=== PATIENT | male | born 1970 | race Caucasian/White ===

== ENCOUNTER 2020-11-14 06:16 | Emergency (ER) | payer SELFPAY ==
[2020-11-14] MEDS ORDERED: Lidocaine 1% 30 ML SDV INJECT ONE (06:32)
--- NOTE | 2020-11-14 06:39 | EDM.PDOC ---
<Rafy Hernandez - Last Filed: 11/14/20 08:38> ED HPI GENERAL MEDICAL PROBLEM - General Chief Complaint: Upper Extremity Injury/Pain Stated Complaint: PT FELL DOWN STAIRS INJURY TO FACE RIGHT HAND Time Seen by Provider: 11/14/20 06:34 - Related Data Allergies Allergy/AdvReac Type Severity Reaction Status Date / Time No Known Allergies Allergy Verified 11/14/20 06:37 ED TRAUMA EXTREMITY PROCEDURES - Laceration/Wound Repair Proximal Nose Lac/Wound Length In cm: 2 Appearance: Subcutaneous Anesthetic Type: Local Local Anesthesia - Lidocaine (Xylocaine): 1% Plain Local Anesthetic Volume: 4cc Skin Prep: Saline Exploration/Debridement/Repair: Wound Explored Closed With: Sutures Suture Size: 4-0 # of Sutures: 6 Suture Type: Interrupted Sterile Dressing Applied: Nurse Tetanus Status Addressed: Yes Complications: No - Splinting Right Upper Extremity Splint Site: R forearm Pre-Procedure NV Status: Normal Post-Procedure NV Status: Normal Splint Material: Plaster Splint Design: Volar Applied & Form Fitted By: Provider Provider Post-Splint Application NV Check: NV Status Normal, Good Position Complications: No Progress/Comments: Pt tolerated well no complications. Course - Re-Assessments/Exams Free Text/Narrative Re-Assessment/Exam: 11/14/20 07:33 Assumed care from Renate Cheema PA-c Departure - Departure Time of Disposition: 08:40 Disposition: Home, Self-Care 01 Condition: Fair Clinical Impression: Fall (on) (from) other stairs and steps, initial encounter, Laceration Closed fracture of radius Qualifiers: Encounter type: initial encounter Radius location: head Fracture alignment: nondisplaced Laterality: right Qualified Code(s): S52.124A - Nondisplaced fracture of head of right radius, initial encounter for closed fracture Nasal bone fracture Qualifiers: Encounter type: initial encounter Fracture type: open Qualified Code(s): S02.2XXB - Fracture of nasal bones, initial encounter for open fracture - Discharge Information *PRESCRIPTION DRUG MONITORING PROGRAM REVIEWED*: Not Applicable *COPY OF PRESCRIPTION DRUG MONITORING REPORT IN PATIENT ALICIA: Not Applicable Instructions: Nasal Fracture, Radial Head Fracture, [id number] Referrals: PCP,None [Primary Care Provider] - Forms: ED Department Discharge Additional Instructions: RX: Keflex Use Tylenol or Motrin for pain. Keep splint dry when showering. If your fingers become numb or cold or change colors you can loosen the splint slightly like we discussed. Upon leaving the ER contact an orthopedic surgeon in your home town to schedule an appointment to have your wrist evaluated. If any new symptoms or concerns develop contact your primary care facility or return to the ER. <Angel Luis Nazario - Last Filed: 11/14/20 08:55> Course - Radiology Interpretation Free Text/Narrative:: [facility] Final Radiology Report Call: [phone] assistance Online chat: [email or web address] Name: NIRMALA CEDEÑO Age: 50Years M Date: 11/14/2020 SSN: -- : [id number] Study: CR WRIST COMP MIN 3V RT Requesting Physician: MARIA TERESA REINA Images: 3 Addl Studies: Provided Clinical History: fall, pain deformity Contrast: Contrast Medium: Contrast Amount: Contrast Method: CONFIDENTIALITY STATEMENT This report is intended only for use by the referring physician, and only in accordance with law. If you received this in error, call [phone]. Page 1 of 1 PROCEDURE INFORMATION: Exam: XR Right Wrist Exam date and time: 11/14/2020 6:47 AM Age: 50 years old Clinical indication: Injury or trauma; Fall; Blunt trauma (contusions or hematomas); Wrist; Right; Additional info: Fall, pain deformity TECHNIQUE: Imaging protocol: XR Right wrist. Views: 3 or more views. COMPARISON: No relevant prior studies available. FINDINGS: Bones/joints: Acute destructed comminuted intra-articular distal radial fracture. Suggestion of chip fracture along dorsal aspect the triquetrum. Soft tissues: Soft tissue swelling over the dorsum wrist IMPRESSION: Acute destructed comminuted intra-articular distal radial fracture. Suggestion of chip fracture along dorsal aspect the triquetrum. Thank you for allowing us to participate in the care of your patient. Dictated and Authenticated by: Jabari Waddell MD 11/14/2020 7:07 AM Central Time ([place] & [place]) [facility] Final Radiology Report Call: [phone] assistance Online chat: [email or web address] Name: NIRMALA CEDEÑO Age: 50Years M Date: 11/14/2020 SSN: -- : [id number] Study: CR NASAL BONE MIN 3V Requesting Physician: MARIA TERESA REINA Images: 3 Addl Studies: Provided Clinical History: fall, sweling, laceration Contrast: Contrast Medium: Contrast Amount: Contrast Method: CONFIDENTIALITY STATEMENT This report is intended only for use by the referring physician, and only in accordance with law. If you received this in error, call [phone]. Page 1 of 1 PROCEDURE INFORMATION: Exam: XR Nasal Bones Exam date and time: 11/14/2020 6:42 AM Age: 50 years old Clinical indication: Injury or trauma; Fall; Blunt trauma (contusions or hematomas); Nose; Injury date: 11/14/2020; Additional info: Fall, sweling, laceration TECHNIQUE: Imaging protocol: XR of the nasal bones. Views: Minimum of 3 views COMPARISON: No relevant prior studies available. FINDINGS: Sinuses: Well aerated. No opacification. Bones/joints: Nasal laceration with appearance of a nondisplaced fracture. Soft tissues: See above. IMPRESSION: Nasal laceration with appearance of a nondisplaced fracture. Thank you for allowing us to participate in the care of your patient. Dictated and Authenticated by: Jabari Waddell MD 11/14/2020 7:12 AM Central Time ([place] & [place]) <Maria Teresa Reina Adolfo - Last Filed: 11/15/20 01:20> ED HPI GENERAL MEDICAL PROBLEM - General Source of Information: Reports: Patient History Limitations: Reports: No Limitations - History of Present Illness INITIAL COMMENTS - FREE TEXT/NARRATIVE: ED ambulatory with c/o pain right wrist, cut to nose. States in new environment sleeping in loft, slight disorientation on awakening, in dark got up turned and fell down stairs, no loss of consciousness, denies neck or back pain. Baby aspirin daily. No weakness, cut to nasal bridge, abrasion left temporal and bilateral knees. Review of Systems - Review of Systems Review Of Systems: Comprehensive ROS is negative, except as noted in HPI. ED EXAM, GENERAL - Physical Exam Exam: See Below Exam Limited By: No Limitations General Appearance: Alert, Mild Distress Eye Exam: Bilateral Eye: EOMI, PERRL Ears: Normal External Exam, Hearing Grossly Normal, Normal TMs Nose: Nasal Swelling, Other (laceraton nasal bridge) Throat/Mouth: Normal Inspection, Normal Voice Neck: Non-Tender, Full Range of Motion. No: Limited Range of Motion Respiratory/Chest: No Respiratory Distress, Lungs Clear, Normal Breath Sounds Cardiovascular: Normal Peripheral Pulses, Regular Rate, Rhythm GI/Abdominal: Normal Bowel Sounds, Soft, Non-Tender Extremities: Redness, Other Neurological: Alert, Normal Cognition, Normal Gait, No Motor/Sensory Deficits Psychiatric: Normal Affect, Normal Mood Skin Exam: Warm, Wound/Incision (left forehead abrasion, bilateral superficial abasions to knees, laceration across nasal bridge, scant bleeding) Course - Vital Signs Last Recorded V/S: Last Vital Signs Temp 97.7 F 11/14/20 07:47 Pulse 72 11/14/20 07:47 Resp 14 11/14/20 07:47 BP 98/63 11/14/20 07:47 Pulse Ox 98 11/14/20 07:47 - Orders/Labs/Meds Orders: Active Orders 24 hr Category Date Time Status DME for Discharge [COMM] Routine Oth 11/14/20 07:35 Ordered Meds: Medications Discontinued Medications Generic Name Dose Route Start Last Admin Trade Name Lilly PRN Reason Stop Dose Admin Bacitracin 1 dose 11/14/20 08:36 11/14/20 08:46 Bacitracin Oint 1 Gm U/D Packet TOP 11/14/20 08:37 1 dose ONETIME ONE Administration Cephalexin 500 mg 11/14/20 07:33 11/14/20 07:45 Cephalexin 500 Mg Cap PO 11/14/20 07:34 500 mg ONETIME ONE Administration Lidocaine HCl 30 ml 11/14/20 06:32 11/14/20 06:39 Lidocaine 1% 30 Ml Sdv INJECT 11/14/20 06:33 30 ml ONETIME ONE Administration - Re-Assessments/Exams Free Text/Narrative Re-Assessment/Exam: 11/14/20 06:[address] Nazario with shift change
--- NOTE | 2020-11-14 07:08 | CR ---
PROCEDURE INFORMATION: Exam: XR Right Wrist Exam date and time: 11/14/2020 6:47 AM Age: 50 years old Clinical indication: Injury or trauma; Fall; Blunt trauma (contusions or hematomas); Wrist; Right; Additional info: Fall, pain deformity TECHNIQUE: Imaging protocol: XR Right wrist. Views: 3 or more views. COMPARISON: No relevant prior studies available. FINDINGS: Bones/joints: Acute destructed comminuted intra-articular distal radial fracture. Suggestion of chip fracture along dorsal aspect the triquetrum. Soft tissues: Soft tissue swelling over the dorsum wrist IMPRESSION: Acute destructed comminuted intra-articular distal radial fracture. Suggestion of chip fracture along dorsal aspect the triquetrum.
--- NOTE | 2020-11-14 07:12 | CR ---
PROCEDURE INFORMATION: Exam: XR Nasal Bones Exam date and time: 11/14/2020 6:42 AM Age: 50 years old Clinical indication: Injury or trauma; Fall; Blunt trauma (contusions or hematomas); Nose; Injury date: 11/14/2020; Additional info: Fall, sweling, laceration TECHNIQUE: Imaging protocol: XR of the nasal bones. Views: Minimum of 3 views COMPARISON: No relevant prior studies available. FINDINGS: Sinuses: Well aerated. No opacification. Bones/joints: Nasal laceration with appearance of a nondisplaced fracture. Soft tissues: See above. IMPRESSION: Nasal laceration with appearance of a nondisplaced fracture.
[2020-11-14] MEDS ORDERED: Cephalexin 500 MG Cap PO ONE (07:33)
[2020-11-14] MEDS ORDERED: Bacitracin Oint 1 GM U/D Packet TOP ONE (08:36)
== END 2020-11-14 09:05 | disposition home or self-care (01) ==
LOC: DL.ED 06:16
DX: S02.2XXB Fracture of nasal bones, initial encounter for open fracture (principal); S52.124A Nondisplaced fracture of head of right radius, initial encounter for closed fracture; W10.8XXA Fall (on) (from) other stairs and steps, initial encounter
CPT/HCPCS: 12011; 29125; 70160; 73110; 99283; A9270